=== PATIENT | male | born 1960 | race Two or more races ===

== ENCOUNTER 2018-02-08 05:38 | Emergency (ER) | payer SELFPAY ==
[~2018-02-08] VITALS: Ht 165.1 cm; Wt 78.0 kg
[2018-02-08] MEDS ORDERED: METFORMIN HCL500 M1 ORAL (05:50)
[2018-02-08] MEDS ORDERED: Ketorolac 30mg Inj IV ONE (06:15)
--- NOTE | 2018-02-08 06:15 | Emergency Room Report ---
History of Present Illness General Chief Complaint: Abdominal Pain Source: Patient Present Illness HPI Is a 57-year-old male with a history of diabetes and bilateral inguinal hernia repair in the past. He presents with chief complaint of suprapubic lower abdominal pain. Onset was yesterday. Crampy in nature. Sharp in nature. Radiating to the back. No nausea no vomiting. No diarrhea. Does have dysuria. No hematuria. Nothing made it better. Nothing made it wors Allergies: Coded Allergies: No Known Allergies (Unverified , 02/08/18) Patient History Past Medical History: see triage record, old chart reviewed, DM Past Surgical History: other Pertinent Family History: none Social History: Denies: smoking Immunizations: other Reviewed Nursing Documentation: PMH: Agreed; PSxH: Agreed Nursing Documentation-PMH Past Medical History: No History, Except For Hx Diabetes: Yes Review of Systems Eye: Denies: eye pain, blurred vision ENT: Denies: ear pain, nose congestion, throat swelling Respiratory: Denies: cough, shortness of breath Cardiovascular: Denies: chest pain, palpitations Gastrointestinal: Reports: abdominal pain; Denies: diarrhea, nausea, vomiting Musculoskeletal: Denies: back pain, joint pain Skin: Denies: rash Neurological: Denies: headache, numbness Endocrine: Denies: increased thirst, increased urine Hematologic/Lymphatic: Denies: easy bruising All Other Systems: negative except mentioned in HPI Physical Exam Vital Signs Date Time Temp Pulse Resp B/P (MAP) Pulse Ox O2 Delivery O2 Flow Rate FiO2 02/08/18 05:44 97.8 69 14 170/90 97 Room Air 97.9 vitals with high blood pressure Sp02 EP Interpretation: reviewed, normal General Appearance: well appearing, no apparent distress, alert Head: normocephalic, atraumatic Eyes: bilateral eye PERRL, bilateral eye EOMI ENT: hearing grossly normal, normal pharynx Neck: full range of motion, supple, no meningismus Respiratory: chest non-tender, lungs clear, normal breath sounds Cardiovascular #1: regular rate, rhythm, no murmur Gastrointestinal: normal bowel sounds, no mass, no organomegaly, no bruit, non- distended, tenderness - suprapubic and LLQ Musculoskeletal: back normal, gait/station normal, normal range of motion Neurologic: alert, oriented x3 Psychiatric: mood/affect normal Skin: warm/dry Medical Decision Making Diagnostic Impression: Primary Impression: Abdominal pain Qualified Codes: R10.30 - Lower abdominal pain, unspecified ER Course Patient presents with abdominal pain. Differential include UTI, incarcerated hernia, appendicitis to name a few. Labs and CT scan ordered. I will sign this patient out to Dr. Kyle for final disposition. Last Vital Signs Date Time Temp Pulse Resp B/P (MAP) Pulse Ox O2 Delivery O2 Flow Rate FiO2 02/08/18 05:44 97.8 69 14 170/90 97 Room Air 97.9 Status: improved Referrals: NOT CHOSEN [facility]/,REFERRING (PCP) CARLITO ALAN M.D. Feb 08, 2018 06:15
[2018-02-08] MEDS ORDERED: Morphine Sulfate 4mg/ml Inj IVP ONE (06:45)
[2018-02-08 06:58] LABS: BASOPHILS % (AUTO) 0.7 % (0.0-2.0); EOSINOPHILS % (AUTO) 0.1 % (0.0-3.0); HEMATOCRIT 42.8 % (42.0-52.0); HEMOGLOBIN 15.5 G/DL (14.2-18.0); LYMPHOCYTES % (AUTO) 10.6 % (20.0-45.0); MEAN CORPUSCULAR VOLUME 87 FL (80-99); MONOCYTES % (AUTO) 6.9 % (1.0-10.0); NEUTROPHILS % (AUTO) 81.6 % (45.0-75.0); PLATELET COUNT 245 K/UL (150-450); RED BLOOD COUNT 4.91 M/UL (4.70-6.10); RED CELL DISTRIBUTION WIDTH 10.8 % (11.6-14.8); WHITE BLOOD COUNT 11.1 K/UL (4.8-10.8)
[2018-02-08 07:10] LABS: BILIRUBIN, URINE NEGATIVE (NEGATIVE); COLOR,URINE PALE YELLOW; GLUCOSE, URINE (UA) 2+ (NEGATIVE); KETONES,URINE NEGATIVE (NEGATIVE); LEUKOCYTE ESTERASE ,URINE NEGATIVE (NEGATIVE); NITRITE,URINE NEGATIVE (NEGATIVE); PH,URINE 7 (4.5-8.0); PROTEIN,URINE 3+ (NEGATIVE); UROBILINOGEN,URINE NORMAL MG/DL (0.0-1.0)
[2018-02-08 07:13] LABS: APPEARANCE,URINE SLIGHTLY CLOUDY
[2018-02-08 07:14] LABS: ANION GAP 9 mmol/L (5-15); BLOOD UREA NITROGEN 26 mg/dL (7-18); CALCIUM 8.9 MG/DL (8.5-10.1); CARBON DIOXIDE 27 MMOL/L (21-32); CHLORIDE 98 MMOL/L (98-107); CREATININE 1.6 MG/DL (0.55-1.30); POTASSIUM 3.6 MMOL/L (3.5-5.1); SODIUM 134 MMOL/L (136-145)
[2018-02-08 07:22] LABS: ALANINE AMINOTRANSFERASE 75 U/L (12-78); ALKALINE PHOSPHATASE 71 U/L (46-116); ASPARTATE AMINO TRANSFERASE 34 U/L (15-37); BILIRUBIN,TOTAL 0.8 MG/DL (0.2-1.0)
--- NOTE | 2018-02-08 07:23 | Emergency Room Report ---
Physical Exam Please see the above note. The patient complains of right lower quadrant pain. His history of hernias post repair several years ago. Also has a history of renal stones. He describes some dysuria and difficulty urinating or last 24 hours. He's also had decreased urine stream. He denies any fevers or chills. The pain is 10/10 at this time. It is constant and pressure and aching. The patient is diabetic. He takes oral medication. He does say he's had pain like this before but has been quite a long time. Vital Signs Date Time Temp Pulse Resp B/P (MAP) Pulse Ox O2 Delivery O2 Flow Rate FiO2 02/08/18 05:44 97.8 69 14 170/90 97 Room Air 97.9 Sp02 EP Interpretation: reviewed, normal General Appearance: well appearing, no apparent distress, GCS 15, other - in pain after toradol Head: normocephalic Eyes: bilateral eye normal inspection, bilateral eye PERRL ENT: moist mucus membranes Neck: supple Respiratory: lungs clear, normal breath sounds Cardiovascular #1: regular rate, rhythm Cardiovascular #2: 2+ radial (R) Gastrointestinal: normal inspection, normal bowel sounds, no mass, non- distended, no guarding, no rebound, tenderness - RLQ Genitourinary: no CVA tenderness Musculoskeletal: back normal, gait/station normal, normal range of motion Neurologic: alert, oriented x3, grossly normal Psychiatric: mood/affect normal Skin: normal inspection, warm/dry Medical Decision Making Diagnostic Impression: Primary Impression: Abdominal pain Qualified Codes: R10.30 - Lower abdominal pain, unspecified Additional Impressions: Ureterolithiasis Renal insufficiency Diabetes Qualified Codes: E11.8 - Type 2 diabetes mellitus with unspecified complications ER Course Patient presents with right lower quadrant abdominal pain and comorbidity of diabetes. Differential includes renal stone, UTI, incarcerated hernia, appendicitis amongst others. Evaluation labs and CT were ordered by Dr. Arellano. We are awaiting labs and CTs this time. Analgesia is ordered. After the CAT scan patient returns and states the pain is gone completely. CAT scan shows a right distal ureter stone. Based on exam and improvement, stone passed into bladder. Discussed renal insufficiency with patient and need for follow up with MD. The patient is stable for outpatient observation and treatment. Laboratory Tests Test 02/08/18 06:10 White Blood Count 11.1 K/UL (4.8-10.8) H Red Blood Count 4.91 M/UL (4.70-6.10) Hemoglobin 15.5 G/DL (14.2-18.0) Hematocrit 42.8 % (42.0-52.0) Mean Corpuscular Volume 87 FL (80-99) Mean Corpuscular Hemoglobin 31.5 PG (27.0-31.0) H Mean Corpuscular Hemoglobin Concent 36.2 G/DL (32.0-36.0) H Red Cell Distribution Width 10.8 % (11.6-14.8) L Platelet Count 245 K/UL (150-450) Mean Platelet Volume 7.3 FL (6.5-10.1) Neutrophils (%) (Auto) 81.6 % (45.0-75.0) H Lymphocytes (%) (Auto) 10.6 % (20.0-45.0) L Monocytes (%) (Auto) 6.9 % (1.0-10.0) Eosinophils (%) (Auto) 0.1 % (0.0-3.0) Basophils (%) (Auto) 0.7 % (0.0-2.0) Urine Color Pale yellow Urine Appearance Slightly cloudy Urine pH 7 (4.5-8.0) Urine Specific [place] 1.010 (1.005-1.035) Urine Protein 3+ (NEGATIVE) H Urine Glucose (UA) 2+ (NEGATIVE) H Urine Ketones Negative (NEGATIVE) Urine Occult Blood 3+ (NEGATIVE) H Urine Nitrite Negative (NEGATIVE) Urine Bilirubin Negative (NEGATIVE) Urine Urobilinogen Normal MG/DL (0.0-1.0) Urine Leukocyte Esterase Negative (NEGATIVE) Urine RBC 5-10 /HPF (0 - 0) H Urine WBC 0-2 /HPF (0 - 0) Urine Squamous Epithelial Cells None /LPF (NONE/OCC) Urine Bacteria Few /HPF (NONE) Sodium Level 134 MMOL/L (136-145) L Potassium Level 3.6 MMOL/L (3.5-5.1) Chloride Level 98 MMOL/L (98-107) Carbon Dioxide Level 27 MMOL/L (21-32) Anion Gap 9 mmol/L (5-15) Blood Urea Nitrogen 26 mg/dL (7-18) H Creatinine 1.6 MG/DL (0.55-1.30) H Estimate Glomerular Filtration Rate 44.6 mL/min (>60) Glucose Level 185 MG/DL (74-106) H Calcium Level 8.9 MG/DL (8.5-10.1) Total Bilirubin 0.8 MG/DL (0.2-1.0) Aspartate Amino Transferase (AST) 34 U/L (15-37) Alanine Aminotransferase (ALT) 75 U/L (12-78) Alkaline Phosphatase 71 U/L (46-116) Total Protein 8.0 G/DL (6.4-8.2) Albumin 4.0 G/DL (3.4-5.0) Globulin 4.0 g/dL Albumin/Globulin Ratio 1.0 (1.0-2.7) Lipase 125 U/L (73-393) CT/MRI/US Diagnostic Results CT/MRI/US Diagnostic Results : Imaging Test Ordered: abd Impression Right distal ureter stone 3 mm Impression: Positive for 3 mm distal right ureteral calculus, resulting in mild hydronephrosis and hydroureter, and considerable perinephric fat stranding Incidental finding of a 5 x 4 x 3.7 cm cyst in the vicinity of the gastric fundus, pancreas, and left adrenal. Of uncertain origin as this does not appear to be connected to any adjacent organs Distended bladder Other findings as noted, including tiny fat-containing umbilical hernia, dependent atelectatic changes Last Vital Signs Date Time Temp Pulse Resp B/P (MAP) Pulse Ox O2 Delivery O2 Flow Rate FiO2 02/08/18 09:14 97.3 91 15 134/85 98 Room Air 97.4 Status: improved Disposition: HOME, SELF-CARE Condition: Improved Scripts Acetaminophen (Tylenol) 325 Mg Tablet 650 MG ORAL Q6H PRN for Prn Pain/Headache/Temp > 101, #20 TAB 0 Refills Prov: hCandler Kyle M.D. 02/08/18 Referrals: NOT CHOSEN [facility]/,REFERRING (PCP) Chandler Kyle M.D. Feb 08, 2018 07:23
[2018-02-08 08:17] VITALS: BP 134/88
--- NOTE | 2018-02-08 08:38 | Diagnostic Imaging Report ---
Indication: Right lower quadrant pain Technique: Spiral acquisitions obtained through the abdomen and pelvis. No oral or IV contrast utilized, per urinary stone protocol. Multiplanar reconstructions were generated. Total dose length product 818.01 mGycm. CTDIvol(s) 15.47 mGy. Dose reduction achieved using automated exposure control Comparison: none Findings: There is a 3 mm calculus in the distal right ureter. There is mild right hydronephrosis and right hydroureter and fairly extensive perinephric fat stranding. No intrarenal calculi are demonstrated. No left renal ureteral calculi. Lack of IV contrast limits assessment of the renal parenchyma; no gross renal parenchymal mass or cyst demonstrated. Lack of IV contrast limits assessment of the other solid organs. The liver, gallbladder, bile ducts, pancreas, spleen, adrenals are unremarkable. There are 2 accessory splenules. A 5 x 4 x 3.7 cm cyst is seen medial and inferior to the gastric fundus, superior and posterior to the pancreas and anterior and superior to the left adrenal. Uncertain as to the organ of origin as a fat plane separates this from old the adjacent structures. No retroperitoneal mass or adenopathy. No pelvic mass or adenopathy. The bladder is distended. The prostate is very slightly prominent, contains a calcification. The appendix is unremarkable. No evidence of diverticulosis or diverticulitis. No small bowel distention. No free or loculated intraperitoneal air or fluid. There is a tiny fat-containing umbilical hernia. The included lung bases demonstrate some posterior dependent atelectatic changes, are otherwise unremarkable. The bones are unremarkable. Impression: Positive for 3 mm distal right ureteral calculus, resulting in mild hydronephrosis and hydroureter, and considerable perinephric fat stranding Incidental finding of a 5 x 4 x 3.7 cm cyst in the vicinity of the gastric fundus, pancreas, and left adrenal. Of uncertain origin as this does not appear to be connected to any adjacent organs Distended bladder Other findings as noted, including tiny fat-containing umbilical hernia, dependent atelectatic changes Findings discussed by phone with Dr. Kyle in the emergency room at the time of interpretation The CT scanner at [facility] is accredited by the [employer] and the scans are performed using protocols designed to limit radiation exposure to as low as reasonably achievable to attain images of sufficient resolution adequate for diagnostic evaluation.
[2018-02-08] MEDS ORDERED: TYLENOL325 MG ORAL (09:08)
[2018-02-08 09:14] VITALS: BP 134/85
== END 2018-02-08 09:14 | disposition home or self-care (01) ==
LOC: EMR 06:03
DX: R10.30 Lower abdominal pain, unspecified (principal); N13.2 Hydronephrosis with renal and ureteral calculous obstruction; E11.9 Type 2 diabetes mellitus without complications
CPT/HCPCS: 36415; 74176; 80053; 81003; 83690; 85025; 96361; 96374; 96375; 99284; J1885; J2270